=== PATIENT | male | born 1995 | race Caucasian/White ===

== ENCOUNTER 2017-02-09 23:50 | Emergency (ER) | payer OTHER | END 2017-02-10 03:50 | disposition home or self-care (01) | LOC: ER 23:50 | PROC: 0HQ1XZZ Repair Face Skin, External Approach (ICD-10-PCS; principal; 2017-02-09) | DX: S01.111A Laceration without foreign body of right eyelid and periocular area, initial encounter (principal); W45.8XXA Other foreign body or object entering through skin, initial encounter; Y93.67 Activity, basketball; J45.909 Unspecified asthma, uncomplicated | CPT/HCPCS: 99284; A9270-GY ==